=== PATIENT | male | born 1950 | race Caucasian/White ===

== ENCOUNTER 2017-01-09 12:25 | Emergency (ER) | payer OTHER, MEDICARE ==
[~2017-01-09] VITALS: Ht 190.5 cm; Wt 117.9 kg
[~2017-01-09 12:25] MED LIST: COZAAR50 M1 PO; DILAUDID2 M1 PO; DOXYCYCLINE HY100 M2 PO; FISH OIL500 M1 PO; FLEXERIL10 MG PO; GEMFIBROZIL600 M1 PO; LOVASTATIN40 M1 PO; TYLENOL #31 TAB PO; VITAMIN B-121000 MC3 PO
[2017-01-09 12:56] LABS: ABSOLUTE BASOPHIL COUNT 0 /CUMM (0.0-0.2); ABSOLUTE EOSINOPHIL COUNT 0.1 /CUMM (0.0-0.7); ABSOLUTE GRANULOCYTE CT 4.1 /CUMM (1.4-6.5); ABSOLUTE LYMPH COUNT 1.3 /CUMM (1.2-3.4); ABSOLUTE MONOCYTE COUNT 0.3 /CUMM (0.10-0.60); BASOPHIL % 0.3 % (0.0-2.0); EOSINOPHIL % 1.8 % (0-5); GRANULOCYTE % 70.2 % (42.2-75.2); HEMATOCRIT 47.2 % (42-52); MEAN CORPUSCULAR HGB 29.4 PG (27.0-31.0); MEAN CORPUSCULAR HGB CONC 33.1 G/DL (33.0-37.0); MEAN CORPUSCULAR VOLUME 88.8 FL (80.0-94.0); MEAN PLATELET VOLUME 10.1 FL (7.4-10.4); PLATELET COUNT 174 /CUMM (130-400); RBC DISTRIBUTION WIDTH 13.9 % (11.5-14.5); RED BLOOD CELL CT 5.32 /CUMM (4.70-6.10); WHITE BLOOD CELL COUNT 5.8 /CUMM (4.8-10.8)
[2017-01-09 13:02] LABS: PT 11.8 SEC (9.4-12.5); PTT 34 SEC (25-37)
--- NOTE | 2017-01-09 13:08 | ED CARDIAC/CP/PALPITATIONS ---
History of Present Illness General Chief Complaint: Chest Pain Stated Complaint: CHEST PAIN Source: patient, family Exam Limitations: no limitations Vital Signs & Intake/Output Vital Signs & Intake/Output Vital Signs Date Time Temp Pulse Resp B/P Pulse O2 O2 Flow FiO2 Ox Delivery Rate 01/09 1812 62 18 148/88 100 Room Air 01/09 1547 96.5 79 20 119/72 01/09 1539 96.5 79 20 119/72 100 Room Air 01/09 1240 98.9 95 18 161/79 100 Room Air ED Intake and Output 01/10 0000 01/09 1200 Intake Total Output Total Balance Patient 260 lb Weight Allergies Coded Allergies: NO KNOWN ALLERGIES (05/03/16) Reconcile Medications Apixaban (Eliquis) 5 MG TABLET 1 TAB PO BID Atrial Fibrillation Gemfibrozil 600 MG TABLET 2 TAB PO BID CHOLESTEROL (Reported) Losartan Potassium (Cozaar) 50 MG TABLET 1 TAB PO DAILY BP (Reported) Lovastatin 40 MG TABLET 1 TAB PO DAILY CHOLESTEROL (Reported) with food Metoprolol Tartrate 25 MG TABLET 1 TAB PO BID Atrial Fibrillation [place]-3 Fatty Acids (Fish Oil) (Unknown Strength) CAPSULE (Unknown Dose) PO DAILY SUPPLEMENT (Reported) Polycarbophil (Fiber) (Unknown Strength) TABLET (Unknown Dose) PO DAILY SUPPLEMENT (Reported) Triage Note: PT TO ED FOR PALPITATIONS, REPORTING HE GOT OUT OF SHOWER THIS AM AND BEGAN TO FEEL "MY HEART RACING, SO I WENT DOWNSTAIRS TO DO SOME CHORES AND IT JUST DIDN'T GET BETTER" PT C/O OF SLIGHT CHEST DISCOMFORT AND SOB ASSOCIATED WITH THE PALPITATIONS. PT REPORTING PALPITATIONS IMPROVED WHEN HE SAT DOWN TO REST BUT WORSENED WHEN HE WALKED TO GET MAIL. Triage Nurses Notes Reviewed? yes HPI: 66 yo M PMH HTN, HLD, [place] (on noctournal CPAP) presenting with chest pain, palpitations, SOB. Around 11:00 this AM patient noted palpitations with "fast and racing" heart rate, used wifes pulse oxymeter to take HR, found to be 140- 150s. Intermittent substernal chest pressure, exertional. Mild SOB, exertional. Lightheadedness without focal neurologic Sx. Denies fevers, chills, cough, AP, N /V/D/C, urianry Sx, LE swelling/pain, orthopnea, PND, recent immobility/ hospitalization. Drinks 4-5 cups of coffee/day, denies EtOH. 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 (FELIPE CARVALHO MD) Past History Travel History Traveled to [place] past 21 day No Medical History Any Pertinent Medical History? 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 Yes (FELIPE CARVALHO MD) Review of Systems Review of Systems Constitutional: Reports: no symptoms. EENTM: Reports: no symptoms. Respiratory: Reports: short of breath. Cardiovascular: Reports: chest pain, palpitations. Denies: peripheral edema, syncope. GI: Reports: no symptoms. Genitourinary: Reports: no symptoms. Musculoskeletal: Reports: no symptoms. Skin: Reports: no symptoms. Neurological/Psychological: Reports: no symptoms. Hematologic/Endocrine: Reports: no symptoms. Immunologic/Allergic: Reports: no symptoms. All Other Systems: Reviewed and Negative (FELIPE CARVALHO MD) Physical Exam Physical Exam General Appearance: well developed/nourished, no apparent distress, alert, awake Head: atraumatic Eyes: Bilateral: normal appearance. Ears, Nose, Throat: normal pharynx, normal ENT inspection Neck: normal inspection, supple, full range of motion Respiratory: normal breath sounds, chest non-tender, no respiratory distress, lungs clear Cardiovascular: regular rate/rhythm, tachycardia Peripheral Pulses: 2+ radial (R), 2+ radial (L), 2+ dorsalis pedis (R), 2+ dorsalis pedis (L) Gastrointestinal: normal bowel sounds, soft, non-tender Extremities: normal inspection, normal capillary refill, normal range of motion, no edema Neurologic/Psych: no motor/sensory deficits, awake, alert Core Measures ACS in differential dx? Yes Severe Sepsis Present: No Septic Shock Present: No (FELIPE CARVALHO MD) Progress Differential Diagnosis: atrial fibrillation, myocarditis, pericarditis, pneumonia, pneumothorax, pulmonary embolism, PUD/GERD, V-fib/V-Tach, WPW syndrome Plan of Care: Orders Procedure Date/time Status Heart Healthy Diet 01/09 D Active TROPONIN LEVEL 01/09 1605 Complete EKG 01/09 1335 Active TROPONIN LEVEL 01/09 1240 Complete PARTIAL THROMBOPLASTIN TIME 01/09 1240 Complete PROTHROMBIN TIME 01/09 1240 Complete COMPREHENSIVE METABOLIC PANEL 01/09 1240 Complete CBC WITHOUT DIFFERENTIAL 01/09 1240 Complete EKG 01/09 1226 Active Laboratory Tests 01/09/17 1621: Troponin I 0.01 01/09/17 1244: Anion Gap 12, Estimated GFR > 60, BUN/Creatinine Ratio 15.0, Glucose 160 H, Calcium 10.0, Total Bilirubin 0.6, AST 22, ALT 28, Alkaline Phosphatase 59, Troponin I < 0.01, Total Protein 7.6, Albumin 4.6, Globulin 3.0, Albumin/ Globulin Ratio 1.5, PT 11.8, INR 1.13, APTT 34, CBC w Diff NO MAN DIFF REQ, RBC 5.32, MCV 88.8, MCH 29.4, RDW 13.9, MPV 10.1, Gran % 70.2, Lymphocytes % 22.3, Monocytes % 5.4, Eosinophils % 1.8, Basophils % 0.3, Absolute Granulocytes 4.1, Absolute Lymphocytes 1.3, Absolute Monocytes 0.3, Absolute Eosinophils 0.1, Absolute Basophils 0, PUBS MCHC 33.1 Physician MDM: 66 yo M PMH HTN, HLD presenting with chest pain, palpitations, SOB, HR 150s at home. On exam HR 90s, BP stable, well appearing, no complaints, remainder of exam as above. DDx: Arrhythmia, ACS, pericarditis. Intial ECG with HR 140s, A-fib. Repeat ECG sinus rhythm, non-ischemic. Initial troponin <0.01. CBC, BMP unremarkable. CXR without focal consolidation or airspace disease. Spoke with building construction supervisor cardiology (Dr. Valdes) reccomended AC and rate control, follow up in the next week. Apixaban 5 mg and metoprolol 25 mg given, medication indications and dosing discussed with patient. Repeat troponin @ 3 hrs <0.01. D/ Dustin with return precautions, patient plans to follow up with Dr. Valdes or Dr. Martines (wifes tool crib manager) in the next 7 days. D/W Dr. Browne. (DEVEN PORTER,FELIPE) Initial ED EKG: AFIB, no ST T wave changes (FELIPE CARVALHO MD) Departure Departure Disposition: HOME OR SELF CARE Condition: Stable Clinical Impression Primary Impression: Atrial fibrillation Qualifiers: Atrial fibrillation type: paroxysmal Qualified Code: I48.0 - Paroxysmal atrial fibrillation Secondary Impressions: Chest pain Qualifiers: Chest pain type: other chest pain Qualified Code: R07.89 - Other chest pain Palpitations Referrals: SHASHA PORTER,JASON Shelley (PCP/Family) HARLAN VALDES MD Additional Instructions: Begin taking eliquis 5 mg, 2 times daily. Begin taking metoprolol 25 mg, 2 times daily. Follow up with Dr. Valdes in the next week. Return to the ED for recurrent chset pain, palpitations, SOB, or dizziness. Return to the ED for any new, worsening, or concerning symptoms. Departure Forms: Customer Survey General Discharge Information Prescriptions: Current Visit Scripts Apixaban (Eliquis) 1 TAB PO BID #60 TAB Metoprolol Tartrate 1 TAB PO BID #60 TAB (DEVEN PORTER,FELIPE) PA/TOOL CRIB MANAGER Co-Sign Statement Statement: ED Attending supervision documentation- [X] I saw and evaluated the patient. I have also reviewed all the pertinent lab results and diagnostic results. I agree with the findings and the plan of care as documented in the PA's/TOOL CRIB MANAGER's documentation. [X] I have reviewed the ED Record and agree with the PA's/TOOL CRIB MANAGER's documentation. [] Additions or exceptions (if any) to the PAs/TOOL CRIB MANAGER's note and plan are summarized below: [] Resident Co-Sign Statement Statement: ED Attending supervision documentation- [X] I saw and evaluated the patient. I have also reviewed all the pertinent lab results and diagnostic results. I agree with the findings and the plan of care as documented in the Resident's documentation. [X] I have reviewed the ED Record and agree with the Resident's documentation. [] Additions or exceptions (if any) to the Resident's note and plan are summarized below: [] (GHAZALA PORTER,CELINA) Critical Care Note Critical Care Note Critical Care Time: non-applicable (DEVEN PORTER,FELIPE)
--- NOTE | 2017-01-09 14:23 | RADIOLOGY REPORT ---
EXAMINATION: XR PORTABLE CHEST CLINICAL INFORMATION: Chest pain. Shortness of breath. COMPARISON: 05/03/2016 TECHNIQUE: AP portable upright view of the chest FINDINGS: Lungs are clear. No consolidation, pneumothorax, or pleural effusion. Cardiac and mediastinal contours are normal. Pulmonary vasculature is unremarkable. 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 Mild degenerative spondylosis is present in the thoracic spine. IMPRESSION: No acute cardiopulmonary findings
[2017-01-09] MEDS ORDERED: FIBER625 MG PO (17:03)
[2017-01-09] MEDS ORDERED: ELIQUIS5 M1 PO (17:15)
[2017-01-09] MEDS ORDERED: METOPROLOL TART25 M1 PO (17:15)
[2017-01-09 18:12] VITALS: BP 148/88
== END 2017-01-09 18:13 ==
LOC: ERH 12:25
PROVIDERS: Emergency Medicine
DX: I48.91 Unspecified atrial fibrillation (principal); R07.2 Precordial pain
CPT/HCPCS: 93005; 93010